=== PATIENT | female | born 1930 | race Caucasian/White ===

== ENCOUNTER → 2021-05-29 | Outpatient (CLI) | payer MEDICARE, OTHER ==
--- NOTE | 2021-05-29 13:05 | RAD ---
EXAM: Lumbar spine CT without contrast. HISTORY: Compression fracture. TECHNIQUE: Computed tomographic images of the lumbar spine were obtained without contrast. Multiplana r reformatting was performed. *One or more of the following individualized dose reduction techniques were utilized for this examina tion: 1. Automated exposure control. 2. Adjustment of the mA and/or kV according to patient size. 3. Use of iterative reconstruction technique. COMPARISON: Radiographs dated 05/23/2021. FINDINGS: There are moderate T12 and L1 compression fractures, with approximately 50 percent loss of central vertebral body height. No definite retropulsion of the cortex is seen at these levels. There is suggestion of a superior endplate defect at T12, without a convincing fracture line. This favors a late subacute to early chronic fracture. The fracture at L1 appears to be chronic. No convincing acu te fracture is seen. There is levoscoliosis centered at T12-L1. There is 5 mm grade 1 anterolisthesis of L3 on L4, 8 mm gr anu 1 anterolisthesis of L4 and L5 and 3 mm retrolisthesis of L5 on S1. There is degenerative endplat e remodeling with disc space narrowing, osteophytosis, Schmorl's node formation and vacuum phenomenon predominantly at the lower lumbar levels. There is suspected bone demineralization. There are dorsal column stimulator leads entering the central canal at T12-L1 and extending cephalad to terminate at T6. There is no suspicious lytic or sclerotic osseous lesion. There is mild renal atr ophy. There is heavily calcified atherosclerotic plaque involving the aorta and iliac bifurcation. Th ere are prominent retroperitoneal lymph nodes. There is colonic diverticulosis. There is degenerative subchondral scoliosis and spurring involving the sacroiliac joints. There are faint lucencies brant sing the bilateral sacrum, best seen on axial images. At T11-T12, there is a disc bulge and endplate remodeling. There is no stenosis. At T12-L1, there is a right paracentral to lateral recess disc protrusion and slight inferior extrusi on superimposed on endplate remodeling. There is mild right facet arthropathy. There is no stenosis. At L1-L2, there is a disc bulge and endplate remodeling. There is mild bilateral facet arthropathy. T here is no stenosis. At L2-L3, there is a disc bulge and endplate remodeling. There is mild to moderate bilateral facet ar thropathy. There is hypertrophy of the ligamentum flavum. There is mild bilateral foraminal stenosis. There is mild to moderate central canal stenosis. At L3-L4, there is a disc bulge and endplate osteophytosis. There is severe bilateral facet arthropat hy. There is grade 1 anterolisthesis. There is marked severe right and mild left foraminal stenosis. There is severe central canal stenosis. At L4-L5, there is a broad-based posterior central disc protrusion and slight superior extrusion supe rimposed on a disc bulge and endplate osteophytosis. There is severe bilateral facet arthropathy. The re is grade 1 anterolisthesis. There is mild right and severe left foraminal stenosis. There is sever e central canal stenosis. At L5-S1, there is a disc bulge and endplate osteophytosis. There is mild bilateral facet arthropathy . There is retrolisthesis. There is severe bilateral foraminal stenosis. IMPRESSION: 1. Moderate T12 and L1 compression fractures, the former of which is likely late subacute or chronic and the latter of which appears to be chronic. There is no retropulsion of the cortex at these levels . 2. Faint lucency traversing the bilateral sacral alae. The possibility of a nondisplaced subacute sac ral insufficiency fractures is not excluded given bone demineralization in this patient. 3. 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 This results in significant stenosis of the aforementioned levels. 4. Lumbar scoliosis and multilevel grade 1 anterolisthesis. Electronically signed by: Sherice Heredia MD (05/29/2021 1:03 PM) [id number]
== END ==
LOC: CT 12:21
PROVIDERS: ATTEND Family Medicine
DX: S22.080A Wedge compression fracture of T11-T12 vertebra, initial encounter for closed fracture (principal); S32.010A Wedge compression fracture of first lumbar vertebra, initial encounter for closed fracture; M47.817 Spondylosis without myelopathy or radiculopathy, lumbosacral region; M47.815 Spondylosis without myelopathy or radiculopathy, thoracolumbar region; M48.07 Spinal stenosis, lumbosacral region; M43.17 Spondylolisthesis, lumbosacral region; M51.25 Other intervertebral disc displacement, thoracolumbar region; M41.85 Other forms of scoliosis, thoracolumbar region; M25.78 Osteophyte, vertebrae; K57.30 Diverticulosis of large intestine without perforation or abscess without bleeding; X58.XXXA Exposure to other specified factors, initial encounter; Y93.89 Activity, other specified; Y92.89 Other specified places as the place of occurrence of the external cause; Y99.8 Other external cause status
CPT/HCPCS: 72131